=== PATIENT | male | born 1945 | race Caucasian/White ===

== ENCOUNTER → 2016-11-07 | Outpatient (CLI) | payer OTHER ==
[~2016-11-07] MED LIST: ACETAMINOPHEN 325 MG TAB PO PRN; FUCOIDAN PO; HYDR500C3 PO; MENA1CAP PO; MULT-506 PO; MULT-704 PO; NUTRCAP54 PO; PRAS25TA PO; TURMPOW2 PEG; Vitamin D PO; Vitamin D2 PO; WHEAT GRASS PO; [UNRECOGNIZED DRUG - CODE]; [UNRECOGNIZED DRUG - CODE] PO; [UNRECOGNIZED DRUG - OTHER] PO; [UNRECOGNIZED DRUG - OTHER] PO; [UNRECOGNIZED DRUG - OTHER] PO; [UNRECOGNIZED DRUG - OTHER] PO; [UNRECOGNIZED DRUG - OTHER] PO; [UNRECOGNIZED DRUG - OTHER] SL
[2016-11-07 15:06] LABS: HEMATOCRIT 26.5 % (42-52); MEAN CELL VOLUME 92.3 fL (80-100); MEAN CORPUSCULAR HEMOGLOBIN 29.6 pg (25-34); MEAN CORPUSCULAR HGB CONC 32.1 g/dl (32-36); MEAN PLATELET VOLUME 12.5 fL (7.4-10.4); PLATELET COUNT 511 K/uL (130-400); RED BLOOD COUNT 2.87 M/uL (4.7-6.1); WHITE BLOOD COUNT 34.27 K/uL (4.8-10.8)
[2016-11-07 15:08] LABS: BASO ABS # 0.27 K/uL (0-0.2); BASOPHIL % 0.8 % (0-2); LARGE PLATELETS 2+; LYMPH ABS # 2.33 K/uL (1.2-3.4); LYMPHOCYTE % 6.8 %; NEUTROPHILS % 6.8 %
[2016-11-07 15:09] LABS: COMPLETE YES
--- NOTE | 2016-11-17 12:36 | CODING QUERY NO DIAGNOSIS ---
TREATMENT RENDERED WITHOUT A DIAGNOSIS To promote full compliance with coding requirements relating to patient care, physician participation is requested in all cases of assistant printer floor covering uncertainty. Please assist us with providing a diagnosis/symptom for the test(s) below: A diagnosis/symptom was not documented on your Order. A valid diagnosis/symptom is required to bill all insurances. DATE OF SERVICE: 11/07/16 Please remember that we are unable to code a diagnosis of rule out, probable, possible, questionable, or suspected. Tests that require a diagnosis: * CBC DIAGNOSIS: * TESTOSTERONE; FREE DIAGNOSIS: * TESTOSTERONE; TOTAL DIAGNOSIS: * FERRITIN DIAGNOSIS: Provider Signature: Date: Thank you Tresa Prabhakar [facility] Information Management Once completed, please kindly fax back to [phone] For questions please call [phone]
== END | disposition home or self-care (01) ==
LOC: C.LAB 13:53
PROVIDERS: ATTEND Internal Medicine Sleep Medicine
DX: C92.00 Acute myeloblastic leukemia, not having achieved remission (principal)

== ENCOUNTER → 2017-03-27 | Outpatient (CLI) | payer OTHER ==
[~2017-03-27] MED LIST changes: -ACETAMINOPHEN 325 MG TAB PO PRN; +ASCO10003 IV; +LUTE15CA PO; +SELENIUM PO; +VITATAB19 PO; +[UNRECOGNIZED DRUG - OTHER] PO
== END | disposition home or self-care (01) ==
LOC: C.LAB 13:26
PROVIDERS: ATTEND Internal Medicine Sleep Medicine
DX: E29.1 Testicular hypofunction (principal); C92.02 Acute myeloblastic leukemia, in relapse

== ENCOUNTER → 2017-08-11 | Outpatient (CLI) | payer OTHER ==
[~2017-08-11] MED LIST changes: +[UNRECOGNIZED DRUG - CODE]; -[UNRECOGNIZED DRUG - CODE]; +[UNRECOGNIZED DRUG - CODE] SQ; -[UNRECOGNIZED DRUG - OTHER] PO; -[UNRECOGNIZED DRUG - OTHER] SL
== END | disposition home or self-care (01) ==
LOC: C.LAB 18:31
PROVIDERS: ATTEND Internal Medicine Hematology & Oncology
DX: C92.02 Acute myeloblastic leukemia, in relapse (principal)